=== PATIENT | female | born 1990 | race Caucasian/White ===

== ENCOUNTER 2018-10-29 10:00 | Inpatient (IN) | END 2018-10-31 17:30 | disposition home or self-care (01) | DRG 853 ==

== ENCOUNTER 2018-11-05 13:28 | Inpatient (IN) | payer OTHER ==
[~2018-11-05] VITALS: Ht 165.1 cm; Wt 66.1 kg
[~2018-11-05 13:28] MED LIST: AMOX1TAB10 PO; DOCU-144 PO; OXYC-279 PO
[2018-11-05] MEDS ORDERED: SOD CHLORIDE 0.9% 1,000 ML IV STA (13:47)
--- NOTE | 2018-11-05 14:12 | ERD ---
ER Documentation Chief Complaint Chief Complaint REDNESS & PUS NOTED AT DRAINAGE SITE; HX APPY LAST SATURDAY 10/27 HPI This is a 28-year-old female with a prior history of laparoscopic Appendectomy with GABRIELE drain placement on October 27, who presents with redness and purulent drainage since yesterday. She denies fever, she has not had any nausea or vomiting, she is currently taking Augmentin, and also completed a course of Macrobid. ROS All systems reviewed and are negative except as per history of present illness. Medications Home Meds Active Scripts Amoxicillin/Potassium Clav (Amox-Clav 875-125 mg Tablet) 875-125 mg Tab, 1 TAB PO BID, #20 TAB Prov:GARCIA,BRAD V. OPHTHALMIC ASSISTANT 10/31/18 Docusate Sodium* (Colace*) 100 Mg Capsule, 100 MG PO BID, #60 CAP Prov:GARCIA,BRAD V. OPHTHALMIC ASSISTANT 10/31/18 Oxycodone HCl/Acetaminophen (Percocet 5-325 mg Tablet) 1 Each Tablet, 1 EACH PO Q6, #15 TAB Prov:GARCIABRAD V. OPHTHALMIC ASSISTANT 10/31/18 Discontinued Scripts Nitrofurantoin Monohyd Macrocr* (Macrobid*) 100 Mg Capsr, 100 MG PO BID for 7 Days, CAP Prov:MIN RLIEY PA-C 03/24/16 Ibuprofen* (Motrin*) 600 Mg Tab, 600 MG PO Q6, #30 TAB Prov:MIN RILEY PA-C 03/24/16 Benzocaine/Menthol* (Cepacol* Sore Throat Lozenges) 1 Each Lozenge, 1 EACH MM q2h PRN for SORE THROAT, #30 LOZENGE Prov:MIN RILEY PA-C 03/24/16 Phenol* (Chloraseptic* [place]) 177 Ml [place].pump, 2 SPRAY MT Q2H PRN for SORE THROAT, #1 BOTTLE Prov:MIN RILEY PA-C 03/24/16 Allergies Allergies: Coded Allergies: No Known Allergy (Unverified , 11/05/18) PMhx/Soc Medical and Surgical Hx: pt denies Medical Hx, pt denies Surgical Hx History of Surgery: No Anesthesia Reaction: No Hx Neurological Disorder: No Hx Respiratory Disorders: No Hx Cardiac Disorders: No Hx Psychiatric Problems: No Hx Miscellaneous Medical Probl: No Hx Alcohol Use: No Hx Substance Use: No Hx Tobacco Use: No Smoking Status: Never smoker Physical Exam Vitals Vital Signs Date Temp Pulse Resp B/P (MAP) Pulse Ox O2 O2 Flow FiO2 Time Delivery Rate 11/05/18 98.1 137 20 145/80 99 13:31 (101) Physical Exam Const: No acute distress Head: Atraumatic Eyes: Normal Conjunctiva ENT: Normal External Ears, Nose and Mouth. Neck: Full range of motion. No meningismus. Resp: Clear to auscultation bilaterally Cardio: Regular rate and rhythm, no murmurs Abd: Soft, minimal tenderness of the right lower quadrant, with no palpable f luctuance, there is a GABRIELE drain, over the surrounding area there is foul smelling, purulent drainage., non distended. Normal bowel sounds Skin: No petechiae or rashes Back: No midline or flank tenderness Ext: No cyanosis, or edema Neur: Awake and alert Psych: Normal Mood and Affect Result Diagram: 11/05/18 1400 11/05/18 1400 Results 24 hrs Laboratory Tests Test 11/05/18 14:00 11/05/18 15:09 White Blood Count 18.3 10^3/ul Red Blood Count 3.59 10^6/ul Hemoglobin 10.8 g/dl Hematocrit 32.9 % Mean Corpuscular Volume 91.6 fl Mean Corpuscular Hemoglobin 30.1 pg Mean Corpuscular Hemoglobin Concent 32.8 g/dl Red Cell Distribution Width 13.0 % Platelet Count 725 10^3/UL Mean Platelet Volume 7.8 fl Immature Granulocytes % 1.800 % Neutrophils % % Segmented Neutrophils % (Manual) 77 % Lymphocytes % % Lymphocytes % (Manual) 16 % Monocytes % % Monocytes % (Manual) 5 % Eosinophils % % Basophils % % Basophils % (Manual) 1 % Metamyelocytes % (manual) 1 % Nucleated Red Blood Cells % 1 % Immature Granulocytes # 0.330 10^3/ul Neutrophils # 10^3/ul Lymphocytes (Manual) 2.9 10^3/ul Lymphocytes # 10^3/ul Monocytes # 10^3/ul Monocytes # (Manual) 0.9 10^3/ul Eosinophils # 10^3/ul Basophils # 10^3/ul Basophils # (Manual) 0.1 10^3/ul Metamyelocytes # 0.1 10^3/ul Nucleated Red Blood Cells # 10^3/ul Platelet Estimate INCREASED Platelet Morphology Comment @See below Polychromasia 3+ Urine Color YELLOW Urine Clarity CLEAR Urine pH 7.0 Urine Specific [place] 1.013 Urine Ketones NEGATIVE mg/dL Urine Nitrite NEGATIVE mg/dL Urine Bilirubin NEGATIVE mg/dL Urine Urobilinogen 1+ mg/dL Urine Leukocyte Esterase 1+ Pearl/ul Urine Microscopic RBC 3 /HPF Urine Microscopic WBC 33 /HPF Urine Squamous Epithelial Cells FEW /HPF Urine Bacteria FEW /HPF Urine Hemoglobin 2+ mg/dL Urine Glucose NEGATIVE mg/dL Urine Total Protein NEGATIVE mg/dl Urine Test NEGATIVE Sodium Level 138 mmol/L Potassium Level 4.5 mmol/L Chloride Level 97 mmol/L Carbon Dioxide Level 31 mmol/L Anion Gap 10 Blood Urea Nitrogen 9 mg/dl Creatinine 0.57 mg/dl Est Glomerular Filtrat Rate mL/min > 60 mL/min Glucose Level 102 mg/dl Calcium Level 9.4 mg/dl POC Venous Lactate 2.3 mmol/L Current Medications Medications Dose Sig/Jennifer Start Time Status Last (Trade) Ordered Route PRN Stop Time Admin Dose Reason Admin Sodium 1,000 ml @ Q1H STAT 11/05/18 DC 11/05/18 Chloride 1,000 mls/hr IV 13:47 14:26 11/05/18 14:46 Piperacillin 100 ml @ ONCE STAT 11/05/18 DC Sod/ 200 mls/hr IVPB 14:46 Tazobactam 11/05/18 Sod 15:15 Sodium 800 ml BOLUS OVER 2 11/05/18 DC Chloride HOURS STAT 15:15 (NS) IV* 11/05/18 15:21 Procedures/MDM This 28-year-old female who presents for evaluation of purulent drainage, status post appendectomy. There is very foul smelling fluid coming from around her surgical site, the patient not have any pain, but was noted to have leukocytosis, initial lactate was 2.3, and she was tachycardic, that she met septic criteria, severe sepsis with lactate. She was given full bolus of IV fluids, Zosyn for intra-abdominal infection, CT abdomen pelvis is pending for evaluation of possible abscess. Dr. Madera was consulted for surgery, patient will be admitted to Dr. Quiñones. Sepsis Documentation: Patient's infectious symptoms have not stabilized and the patient is at risk of rapid decompensation. The patient will be admitted for careful hydration, antibiotic therapy, and infectious source control. SEVERE SEPSIS CRITERIA: Infectious source: Intra-abdominal End organ damage indicated by: [Lactate > 2.0 mmol/L SEPSIS MANAGEMENT Time of recognition of sepsis: Time of results WBC Time of recognition of severe sepsis: [, Result of lactate]. Time of recognition of septic shock: [No septic shock at this time]. 3 HOUR BUNDLE Blood cultures x 2 before broad-spectrum antibiotics: [Yes] 30 ml/kg NS bolus [Completed] Initial lactate 2.3 Repeat lactate pending CRITICAL CARE Critical care time [35] minutes Emergent fluid management while maintaining close respiratory support. Provision of immediate and broad-spectrum antibiotic therapy. Simultaneous assessment for possible sources in order to direct targeted therapy. Consideration for invasive and chemical support to prevent cardiopulmonary collapse. Critical care time is independent of procedures performed. Departure Diagnosis: Primary Impression: Postoperative complication Surgical complication system/body Area: digestive system Surgical complication type: unspecified Procedure type: digestive system Qualified Codes: K91.89 - Other postprocedural complications and disorders of digestive system Condition: Stable JAMIL PARK MD Nov 05, 2018 14:12
[2018-11-05] MEDS ORDERED: PIPER-TAZO 3.375 GM IV (PMX) 100 ML IVPB STA (14:46)
[2018-11-05] MEDS ORDERED: SODIUM CHLORIDE 0.9% 1L BAG IV* STA (15:15)
--- NOTE | 2018-11-05 15:53 | HP ---
Date/Time of Note Date/Time of Note DATE: 11/05/18 TIME: 15:48 Assessment/Plan VTE Prophylaxis Pharmacological prophylaxis: heparin Lines/Catheters IV Catheter Type (from Nrs): Saline Lock Assessment/Plan Hospital Course 28 yo female with purulent drainage from GABRIELE drain after appendectomy a week ago - IV abx -> continue zosyn/vanco - CT scan is pending to assess for abscess Result Diagram: 11/05/18 1400 11/05/18 1400 Results 24hrs Laboratory Tests Test 11/05/18 14:00 11/05/18 15:09 White Blood Count 18.3 #H Red Blood Count 3.59 #L Hemoglobin 10.8 L Hematocrit 32.9 #L Mean Corpuscular Volume 91.6 Mean Corpuscular Hemoglobin 30.1 Mean Corpuscular Hemoglobin Concent 32.8 Red Cell Distribution Width 13.0 Platelet Count 725 #H Mean Platelet Volume 7.8 Immature Granulocytes % 1.800 H Neutrophils % Segmented Neutrophils % (Manual) 77 Lymphocytes % Lymphocytes % (Manual) 16 Monocytes % Monocytes % (Manual) 5 Eosinophils % Basophils % Basophils % (Manual) 1 Metamyelocytes % (manual) 1 H Nucleated Red Blood Cells % 1 H Immature Granulocytes # 0.330 H Neutrophils # Lymphocytes (Manual) 2.9 Lymphocytes # Monocytes # Monocytes # (Manual) 0.9 Eosinophils # Basophils # Basophils # (Manual) 0.1 H Metamyelocytes # 0.1 H Nucleated Red Blood Cells # Platelet Estimate INCREASED Platelet Morphology Comment @See below Polychromasia 3+ Urine Color YELLOW Urine Clarity CLEAR Urine pH 7.0 Urine Specific [place] 1.013 Urine Ketones NEGATIVE Urine Nitrite NEGATIVE Urine Bilirubin NEGATIVE Urine Urobilinogen 1+ H Urine Leukocyte Esterase 1+ H Urine Microscopic RBC 3 Urine Microscopic WBC 33 H Urine Squamous Epithelial Cells FEW Urine Bacteria FEW A Urine Hemoglobin 2+ H Urine Glucose NEGATIVE Urine Total Protein NEGATIVE Urine Test NEGATIVE Sodium Level 138 Potassium Level 4.5 Chloride Level 97 Carbon Dioxide Level 31 Anion Gap 10 Blood Urea Nitrogen 9 Creatinine 0.57 Est Glomerular Filtrat Rate mL/min > 60 Glucose Level 102 Calcium Level 9.4 POC Venous Lactate 2.3 *H HPI/ROS Admit Date/Time Admit Date/Time Hx of Present Illness 28 yo female with recent history of perforated appendicitis returns with purulent drainage from GABRIELE drain Patient underwent appendectomy for perforated appy a week ago. Treated wtih IV abx in house. Discharged still with drain. Now it has pus coming out with b lood. Not much pain. Concerned about the drainage so came to ED. CT scan is pending PMH/Family/Social Past Medical History Medical History: no pertinent history Coded Allergies: No Known Allergy (Unverified , 11/05/18) Past Surgical History Past Surgical Hx: no surgical history, appendectomy Family History Significant Family History: no pertinent family hx Social History Alcohol Use: none Smoking Status: Never smoker Drug Use: none Exam/Review of Systems Vital Signs Vitals Vital Signs Date Temp Pulse Resp B/P (MAP) Pulse Ox O2 O2 Flow FiO2 Time Delivery Rate 11/05/18 98.1 137 20 145/80 99 13:31 (101) Exam Exam Well apearing no distress Non toxic appearing Soft belly, no rebound or guarding RLQ with GABRIELE drain, susan blood inside MILGROMALONZO MD Nov 05, 2018 15:53
[2018-11-05] MEDS ORDERED: NACL 0.9% 3 ML SYG IV SCH (16:00)
--- NOTE | 2018-11-05 16:14 | CONS ---
Date/Time of Note Date/Time of Note DATE: 11/05/18 TIME: 16:13 Assessment/Plan Assessment/Plan Additional Assessment/Plan Possible postoperative peritoneal abscess CT to assess Further management based on CT findings Consultation Date/Type/Reason Admit Date/Time Date of Consultation: Nov 05, 2018 Hx of Present Illness The patient is a 20-year-old female status post a lap appendectomy for perforated appendix approximately a week ago. She presented to the ER today due to some drainage around the GABRIELE site. In the ER, her white count was 18. She is awaiting a CT. She denies fevers, chills or night sweats. 14 point review of systems was performed. ertinent negatives and positives per HPI per Past Medical History Medical History: no pertinent history Medications Current Medications Sodium Chloride 1,000 ml @ 100 mls/hr Q10H IV ; Start 11/05/18 at 15:55 IV Flush (NS 3 ml) 3 ml PER PROTOCOL IV ; Start 11/05/18 at 16:00 Hydromorphone HCl (Dilaudid) 0.5 mg Q4H PRN IV SEVERE PAIN LEVEL 7-10; Start 11/05/18 at 16:00 Piperacillin Sod/ Tazobactam Sod 100 ml @ 200 mls/hr Q6H IVPB ; Start 11/05/18 at 22:00 Allergies: Coded Allergies: No Known Allergy (Unverified , 11/05/18) Past Surgical History Past Surgical Hx: no surgical history, appendectomy Social History Alcohol Use: none Smoking Status: Never smoker Drug Use: none Exam/Review of Systems Vital Signs Vitals Vital Signs Date Temp Pulse Resp B/P (MAP) Pulse Ox O2 O2 Flow FiO2 Time Delivery Rate 11/05/18 102 18 121/81 100 Room Air 15:49 (94) 11/05/18 98.1 13:31 Exam Constitutional: alert, oriented, well developed Psych: no complaints Head: normocephalic Eyes: nl conjunctiva Neck: supple Respiratory: clear to auscultation Cardiovascular: regular rate and rhythm Gastrointestinal: soft, non-tender Neurological: [employer] II-XII intact, nl mental status, nl speech Skin: nl turgor Lymph: nl lymph nodes Additional Comments GABRIELE with old sanguinous fluid. Removed in ER by me. Medications Medications Current Medications Sodium Chloride 1,000 ml @ 100 mls/hr Q10H IV ; Start 11/05/18 at 15:55 IV Flush (NS 3 ml) 3 ml PER PROTOCOL IV ; Start 11/05/18 at 16:00 Hydromorphone HCl (Dilaudid) 0.5 mg Q4H PRN IV SEVERE PAIN LEVEL 7-10; Start 11/05/18 at 16:00 Piperacillin Sod/ Tazobactam Sod 100 ml @ 200 mls/hr Q6H IVPB ; Start 11/05/18 at 22:00 SUZANNE HERNANDEZ MD Nov 05, 2018 16:14
[2018-11-05] MEDS ORDERED: SOD CHLORIDE 0.9% 100 ML ONE (16:28)
[2018-11-05] MEDS ORDERED: IOHEXOL 300MG/ML 150 ML BTL ONE (16:28)
[2018-11-05] MEDS: SOD CHLORIDE 0.45% 1,000 ML IV SCH (17:22)
[2018-11-05 17:37] VITALS: BP 116/73; PULSE 113; RESP 16
[2018-11-05] MEDS: HYDROmorphONE 0.5 MG/0.5 ML SYG IV PRN (17:45)
[2018-11-05] MEDS ORDERED: PIPER-TAZO 3.375 GM IV (PMX) 100 ML IVPB SCH (18:00)
[2018-11-05 18:05] VITALS: Ht 165.1 cm; Wt 66.1 kg
--- NOTE | 2018-11-05 18:20 | NUR ---
NURSE NOTE: Pt arrived in the unit at 1730. Pt is awake and alert x 4. no signs of distress. pain complained at the RLQ where previous GABRIELE drainage was. Per pt, prior to arriving in the unit, Dr. Madera saw her in the ER and removed the GABRIELE drain. Admission question were completed with the patient. Gauze at the RLQ was changed due to moderate drainage noted. Culture obtained. Odor noted. Pt was informed that she is currently NPO, pt verbalized understanding.Bed alarm on. Call light within reach.
--- NOTE | 2018-11-05 19:28 | NUR ---
NURSE NOTE: REPORT GIVEN TO CLAUDINE RAMOS. ENDORSED REGARDING BELONGINGS LIST AND CONSENT FOR CT ABDOMEN ABSCESS DRAINAGE.,
[2018-11-05 19:44] VITALS: BP 115/61; PULSE 99; RESP 20
[2018-11-05] MEDS: PIPER-TAZO 3.375 GM IV (PMX) 100 ML IVPB SCH (21:43)
[2018-11-06 02:10] VITALS: BP 116/66; PULSE 104; RESP 18
[2018-11-06] MEDS: PIPER-TAZO 3.375 GM IV (PMX) 100 ML IVPB SCH ×4 (04:28→22:04)
[2018-11-06] MEDS: SOD CHLORIDE 0.45% 1,000 ML IV SCH (04:28)
--- NOTE | 2018-11-06 07:48 | NUR ---
1915 Pt received aaox4, oriented to oncoming shift nurse and [facility] safety protocol including active bed alarm and hourly rounding. Pt verbalized understanding, denies pain/discomfort at this time. 2100 Scheduled antibiotics administered w/o difficulty. Pt educated on route, dose, side effects, and scheduled time. Pt denies further questions. Pt aware of consent scheduled for abscess drainage and need for NPO status. 2300 Dressing changed to RLQ lap incision site, draining sanguinous fluid. 0000 Linen change due to pt diaphoretic during sleep, afebrile. 0200 Pt tolieted, steady on feet. Returned to bed, bed alarm activated. 0600 No significant changes throughout the night, afebrile, nursing will endorse to morning shift to ensure continuity of care.
[2018-11-06 07:53] VITALS: BP 103/61; PULSE 92; RESP 18
[2018-11-06] MEDS ORDERED: INFLUENZA VIRUS VACCINE 0.5 ML (DISPENSING) IM* ONE (09:00)
--- NOTE | 2018-11-06 09:35 | NUR ---
Pt left the unit going to CT scan for draining abscess via gurney assisted with transporter. Pt is alert, awake and verbally responsive. Respiration are even and non labored. Surgical site in right lower abdomen is intact. Covered with dry dressing.
[2018-11-06] MEDS: FENTAnyl 50 MCG/ML VIAL ONE ×2 (10:24→10:54)
[2018-11-06] MEDS: LIDOCAINE 1% (MPF) 5 ML VIAL ONE ×2 (10:24→11:00)
[2018-11-06] MEDS: MIDAZOLAM 1 MG/ML 2 ML INJ ONE ×2 (10:25→11:00)
[2018-11-06] MEDS: SOD CHLORIDE 0.9% 500 ML ONE ×2 (10:25→10:35)
--- NOTE | 2018-11-06 11:38 | HPN ---
Date/Time of Note Date/Time of Note DATE: 11/06/18 TIME: 11:38 Interval H&P Admission Note Pt. seen H&P reviewed: No system changes AMBIKA ALAMO MD Nov 06, 2018 11:38
[2018-11-06] MEDS: HYDROmorphONE 0.5 MG/0.5 ML SYG IV PRN (12:35)
--- NOTE | 2018-11-06 12:35 | NUR ---
Pt just transferred back in the unit via gurney. Pt is alert awake and verbally responsive. Respiration are even and on labored. Patient is in pain. Pain medication given as ordered. Drainage is in place and secured covered with dry dressing. Will continue to monitor.
[2018-11-06 13:00] VITALS: BP 122/70; PULSE 95
[2018-11-06 13:30] VITALS: BP 113/66; PULSE 111
[2018-11-06 14:00] VITALS: BP 111/61; PULSE 111; RESP 18
--- NOTE | 2018-11-06 16:22 | PN ---
Date/Time of Note Date/Time of Note DATE: 11/06/18 TIME: 16:20 Assessment/Plan Lines/Catheters IV Catheter Type (from Nrsg): Peripheral IV Cerna in Place (from Nrsg): No Assessment/Plan Chief Complaint/Hosp Course HD#1 for post-op abscess s/p lap appey Drain placed today OK to D/C home on oral abx once WBC normalizes Subjective 24 Hr Interval Summary Constitutional: improved, ambulates Feeding: advancing diet Pain Control: moderate Exam/Review of Systems Vital Signs Vitals Vital Signs Date Temp Pulse Resp B/P (MAP) Pulse Ox O2 O2 Flow FiO2 Time Delivery Rate 11/06/18 97.8 111 18 111/61 98 14:00 (78) 11/05/18 Room Air 15:49 Exam Constitutional: alert, oriented, well developed Respiratory: clear to auscultation Cardiovascular: regular rate and rhythm Gastrointestinal: soft Results Result Diagram: 11/06/18 0531 11/06/18 0531 SUZANNE HERNANDEZ MD Nov 06, 2018 16:22
[2018-11-06] MEDS: HYDROCODONE/APAP (5/325) TAB NGT PRN ×2 (16:37→23:15)
--- NOTE | 2018-11-06 17:39 | PN ---
Date/Time of Note Date/Time of Note DATE: 11/06/18 TIME: 17:37 Assessment/Plan VTE Prophylaxis Risk score (from Ns)>0 risk: 3 SCD applied (from Ns): Yes Pharmacological prophylaxis: heparin Lines/Catheters IV Catheter Type (from Nrs): Peripheral IV Urinary Cath still in place: No Assessment/Plan Hospital Course 28 yo female with purulent drainage from GABRIELE drain after appendectomy for perforated appendicitis a week ago found to have abdominal abscess - s/p perc drain - IV abx -> continue zosyn/. await speciation Result Diagram: 11/06/18 0531 11/06/18 0531 Results 24hrs Laboratory Tests Test 11/06/18 05:31 White Blood Count 15.7 H Red Blood Count 3.05 L Hemoglobin 9.2 L Hematocrit 28.3 L Mean Corpuscular Volume 92.8 Mean Corpuscular Hemoglobin 30.2 Mean Corpuscular Hemoglobin Concent 32.5 Red Cell Distribution Width 13.1 Platelet Count 648 H Mean Platelet Volume 8.0 Immature Granulocytes % 1.500 H Neutrophils % 80.4 H Lymphocytes % 12.0 L Monocytes % 4.8 Eosinophils % 1.0 Basophils % 0.3 Nucleated Red Blood Cells % 0.0 Immature Granulocytes # 0.240 H Neutrophils # 12.7 H Lymphocytes # 1.9 Monocytes # 0.8 Eosinophils # 0.2 Basophils # 0.1 Nucleated Red Blood Cells # 0.0 Prothrombin Time 14.1 Prothrombin Time Ratio 1.1 INR International Normalized Ratio 1.08 Activated Partial Thromboplast Time 38.8 H Sodium Level 139 Potassium Level 4.9 Chloride Level 99 Carbon Dioxide Level 28 Anion Gap 12 Blood Urea Nitrogen 10 Creatinine 0.61 Est Glomerular Filtrat Rate mL/min > 60 Glucose Level 84 Hemoglobin A1c 5.5 Calcium Level 8.9 Total Bilirubin 0.2 Direct Bilirubin 0.00 Indirect Bilirubin 0.2 Aspartate Amino Transf (AST/SGOT) 36 Alanine Aminotransferase (ALT/SGPT) 24 Alkaline Phosphatase 67 Total Protein 6.8 Albumin 3.5 Globulin 3.30 H Albumin/Globulin Ratio 1.06 Subjective 24 Hr Interval Summary Free Text/Dictation PERC drain is placed, draining sanginous fluid feels well, no complaints Exam/Review of Systems Vital Signs Vitals Vital Signs Date Temp Pulse Resp B/P (MAP) Pulse Ox O2 O2 Flow FiO2 Time Delivery Rate 11/06/18 97.8 111 18 111/61 98 14:00 (78) 11/05/18 Room Air 15:49 Medications Medications Current Medications IV Flush (NS 3 ml) 3 ml PER PROTOCOL IV ; Start 11/05/18 at 16:00 Hydromorphone HCl (Dilaudid) 0.5 mg Q4H PRN IV SEVERE PAIN LEVEL 7-10 Last administered on 11/06/18at 12:35; Admin Dose 0.5 MG; Start 11/05/18 at 16:00 Piperacillin Sod/ Tazobactam Sod 100 ml @ 200 mls/hr Q6H IVPB Last administered on 11/06/18at 16:37; Admin Dose 200 MLS/HR; Start 11/05/18 at 22:00 Acetaminophen/ Hydrocodone Bitart ([place] (5/325)) 2 tab Q4H PRN NGT MODERATE PAIN LEVEL 4-6 Last administered on 11/06/18at 16:37; Admin Dose 2 TAB; Start 11/06/18 at 14:30 ALONZO ANDRES MD Nov 06, 2018 17:39
--- NOTE | 2018-11-06 19:00 | NUR ---
Pt is alert, awake and verbally responsive. Respiration are even and non labored. NO acute distress or discomfort noted. New drainage insertion in right lower abdomen. Dressing is intact. No bleeding noted. Stable condition. Endorse accordingly.
[2018-11-06 19:25] VITALS: BP 109/65; PULSE 92; RESP 18
[2018-11-07 02:00] VITALS: BP 115/57; PULSE 91; RESP 18
[2018-11-07] MEDS: PIPER-TAZO 3.375 GM IV (PMX) 100 ML IVPB SCH ×3 (05:31→16:22)
[2018-11-07] MEDS: HYDROCODONE/APAP (5/325) TAB NGT PRN ×2 (05:32→12:56)
[2018-11-07 08:13] VITALS: BP 113/62; PULSE 96; RESP 18
--- NOTE | 2018-11-07 08:18 | NUR ---
191 Pt received aaox4 vital signs stable, no s/s of distress. Pt oriented to night warehouse manager nurse and reminded of [facility] safety protocols including an active bed alarm and hourly rounding. Pt verbalized understanding. GABRIELE drained noted upon assessment. 2229 Scheduled medications administered po w/o difficulty including pain medication (2tab norco for 6/10 R quadrant abd pain.) Pt educated on side effects of medications including risk for falls and constipation. Pt verbalized understanding and stated she takes stool softeners BID @ home. Received order for scheduled Miralax and colace from Dr. Crane. 0000 GABRIELE drain flushed w/ 10ml NS as orderded, pt tolerated procedure well. No complaints of pain. Sanguinous drainage noted. 0500 IV antibiotics and pain medication administered w/o difficulty. Nursing denies further needs at this time. 0700 No significant changes throughout the night. Nursing will endorse to night warehouse manager for continued monitoring and to ensure continuity of care. Addendum: 11/07/18 at 0828 by RACHEL AKHTAR RN *Edit - Pain medication administered 5 not 2229. Refer to JAN.
[2018-11-07] MEDS ORDERED: DOCUSATE SODIUM 100 MG CAP PO SCH (09:00)
[2018-11-07] MEDS ORDERED: POLYETHYLENE GLYCOL 17 GM PACKET PO SCH (09:00)
[2018-11-07] MEDS ORDERED: SULF1TAB31 PO (10:43)
--- NOTE | 2018-11-07 10:44 | PDOCDIS ---
Discharge Instructions DIAGNOSIS Discharge Diagnosis Abscess CONDITION 2 [id number] Patient Condition: [id number] Stable HOME CARE INSTRUCTIONS: [id number] Special Diet: [id number] Regular Diet FOLLOW UP/APPOINTMENTS Follow-up Plan Make an appointment to see Dr Madera to have your drain removed. His office number is I have prescribed you a different antibiotic to take for 1 week called Bactrim. It is available for pickup at your pharmacy ALONZO ANDRES MD Nov 07, 2018 10:44
--- NOTE | 2018-11-07 14:19 | NUR ---
SS Note: SDI SW received order pt requesting to speak with SS regarding disability. The patient is a 28-year-old female with purulent drainage from GABRIELE drain after appendectomy a week ago, per record. JUAN met with pt at bedside to provide support, assess for needs, and link pt to appropriate resources as needed. Pt awake, alert, and oriented x4. Pt very pleasant and appeared to be coping appropriately with admission. 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 Pt off work since 10/26/18 due to surgery and s/p surgery complications and is requesting SDI. SW notified attending, Dr. Quiñones. Pt reported she is in a domestic partnership and has 2 children. Pt verbally appointed her significant other, Trent Jaydon , as surrogate decision maker/spokesperson. Pt confirmed address on facesheet and stated she lives with SO and SO's parents. Pt is employed. She is independent with ADL's and does not require DME. Pt has [facility] insurance. No PCP. Pt reported good understanding regarding outpatient f/u instructions. SDI form pending. Addendum: 11/07/18 at 1510 by LISETH MINA MD completed SDI form and was provided to pt.
[2018-11-07 14:59] VITALS: BP 110/62; PULSE 90; RESP 18
--- NOTE | 2018-11-07 16:37 | DS ---
Date/Time of Note Date/Time of Note DATE: 11/07/18 TIME: 16:30 Discharge Summary Admission/Discharge Info Admit Date/Time Nov 05, 2018 at 15:18 Discharge Date/Time Discharge Diagnosis Abscess Patient Condition: Stable Hx of Present Illness 28 yo female with recent history of perforated appendicitis returns with purulent drainage from GABRIELE drain Patient underwent appendectomy for perforated appy a week ago. Treated wtih IV abx in house. Discharged still with drain. Now it has pus coming out with blood. Not much pain. Concerned about the drainage so came to ED. CT scan is pending Hospital Course 28 yo female with purulent drainage from GABRIELE drain after appendectomy for perforated appendicitis a week ago found to have abdominal abscess CT showed abscess. She underwent IR guided drainage of this. An accordian drain was left in. Cultures grew E Coli and Bactrim was prescribed. She will follow up with Dr Madera as an outpatient. Home Meds Active Scripts Sulfamethoxazole/Trimethoprim* (Bactrim Ds* Tablet) 1 Each Tablet, 1 TAB PO BID for 7 Days, #14 TAB Prov:ALONZO ANDRES MD 11/07/18 Discontinued Scripts Amoxicillin/Potassium Clav (Amox-Clav 875-125 mg Tablet) 875-125 mg Tab, 1 TAB PO BID, #20 TAB Prov:BRAD GARCIA V. FREELANCE DIRECTOR 10/31/18 Docusate Sodium* (Colace*) 100 Mg Capsule, 100 MG PO BID, #60 CAP Prov:BRAD GARCIA VAc FREELANCE DIRECTOR 10/31/18 Oxycodone HCl/Acetaminophen (Percocet 5-325 mg Tablet) 1 Each Tablet, 1 EACH PO Q6, #15 TAB Prov:BRAD GARCIA V. FREELANCE DIRECTOR 10/31/18 Nitrofurantoin Monohyd Macrocr* (Macrobid*) 100 Mg Capsr, 100 MG PO BID for 7 Days, CAP Prov:MIN RILEY PA-C 03/24/16 Ibuprofen* (Motrin*) 600 Mg Tab, 600 MG PO Q6, #30 TAB Prov:MIN RILEY PA-C 03/24/16 Benzocaine/Menthol* (Cepacol* Sore Throat Lozenges) 1 Each Lozenge, 1 EACH MM q2h PRN for SORE THROAT, #30 LOZENGE Prov:MIN RILEY PA-C 03/24/16 Phenol* (Chloraseptic* Humphrey) 177 Ml Humphrey.pump, 2 SPRAY MT Q2H PRN for SORE THROAT, #1 BOTTLE Prov:MIN RILEY PA-C 03/24/16 Follow-up Plan Make an appointment to see Dr Madera to have your drain removed. His office number is I have prescribed you a different antibiotic to take for 1 week called Bactrim. It is available for pickup at your pharmacy Primary Care Provider Not On Staff Doctor ALONZO ANDRES MD Nov 07, 2018 16:37
--- NOTE | 2018-11-07 18:00 | NUR ---
Discharge patient with all of her belongings. Pt is alert, awake and verbally responsive. Respiration are even and non labored No acute distress or discomfort noted. Return demonstration done how to flush her draining catheter and how to change the wound dressing when she needed. Demonstrate well and verbalize understanding. All questions and concerns are answered. No bleeding noted in he site. Stable condition.
== END 2018-11-07 17:51 | disposition home or self-care (01) | DRG 862 ==
LOC: E/R 13:28 → PP2 15:18
PROVIDERS: ADMIT Internal Medicine; ATTEND Internal Medicine
PROC: 0J9C30Z Drainage of Pelvic Region Subcutaneous Tissue and Fascia with Drainage Device, Percutaneous Approach (ICD-10-PCS; principal; 2018-11-06)
PROC: 3E0234Z Introduction of Serum, Toxoid and Vaccine into Muscle, Percutaneous Approach (ICD-10-PCS; 2018-11-06)
DX: T81.49XA Infection following a procedure, other surgical site, initial encounter (principal); K65.1 Peritoneal abscess; Z23 Encounter for immunization
CPT/HCPCS: 74177; 76705; 77012; 80048; 80053; 81001; 83036; 83605; 84703; 85025; 85610; 85730; 87040; 87070; 87075; 90686; 93005; C1729; J1170; J2250; J2543; J3010; J7030; J7040; Q9967